=== PATIENT | male | born 1960 | race Caucasian/White ===

== ENCOUNTER 2017-06-24 03:48 | Emergency (ER) | payer MEDICAID ==
[~2017-06-24] VITALS: Ht 406.4 cm; Wt 90.9 kg
[~2017-06-24 03:48] MED LIST: CLOP75TA33 PO
[2017-06-24 03:57] VITALS: BP 136/96
[2017-06-24] MEDS ORDERED: CYCL-1 PO (07:40)
[2017-06-24] MEDS ORDERED: ibuprofen 200mg tablet PO ONE (07:40)
== END 2017-06-24 08:31 | disposition home or self-care (01) ==
LOC: ER 03:50
DX: M54.41 Lumbago with sciatica, right side (principal); M79.651 Pain in right thigh; F12.10 Cannabis abuse, uncomplicated; Z79.899 Other long term (current) drug therapy
CPT/HCPCS: 99283